=== PATIENT | female | born 1950 | race Caucasian/White ===

== ENCOUNTER 2022-08-17 01:06 | Inpatient (IN) ==
[2022-08-17] MEDS ORDERED: 0.9 % Sodium Chloride 1,000 ML IVC SCH (06:30)
[2022-08-17] MEDS ORDERED: Ondansetron 4 MG/2 ML VIAL IVP PRN (06:30)
[2022-08-17] MEDS ORDERED: Naloxone 0.4 MG/ML INJ IVP PRN (06:30)
[2022-08-17 07:43] LABS: Hematocrit 26.9 % (35.3-44.9); Hemoglobin 8.1 g/dL (11.5-15.4); Mean Corpuscular HGB Conc 30.1 g/dL (31.6-35.5); Mean Corpuscular Hemoglobin 32.7 pg (28.0-33.3); Mean Corpuscular Volume 108.5 fL (83.0-100.0); Platelet Count 104 K/mcL (140-400); Red Blood Count 2.48 M/mcL (3.82-4.97); Red Cell Distribution Width 15.4 % (11.5-14.5); White Blood Count 5.2 K/mcL (4.3-11.1)
[2022-08-17 07:47] LABS: INR 1.1; Prothrombin Time 12.8 Seconds (9.4-12.1)
[2022-08-17 07:50] LABS: Activated Partial Thrombo Time 29.9 Seconds (26.0-36.0)
[2022-08-17 07:55] LABS: Albumin 3.5 g/dL (3.5-5.7); Bilirubin,Total 0.9 mg/dL (0.3-1.0); Calcium 8.4 mg/dL (8.6-10.3); Globulin 3.5 g/dL (2.4-3.5); Potassium 4.4 mEq/L (3.5-5.1)
[2022-08-17] MEDS ORDERED: *HR* Dextrose 50 % in Water (Syg) 50 ML SYRINGE IVP PRN (08:37)
[2022-08-17] MEDS ORDERED: D5% in Water 1,000 ML IVC PRN (08:37)
[2022-08-17] MEDS ORDERED: Dextrose Gel 15 GM/37.5 ML TUBE PO PRN ×2 (08:37)
[2022-08-17] MEDS ORDERED: Albuterol 2.5 MG/3 ML NEBULIZER IH PRN (08:38)
[2022-08-17] MEDS: Lactulose Oral Soln 20 GM/30 ML UDC PO SCH ×2 (08:49→20:08)
[2022-08-17] MEDS: Aspirin Enteric Coated 81 MG Tablet PO SCH (08:49)
[2022-08-17] MEDS: Isosorbide MONOnitrate (24 HR) 60 MG TAB.ER.24H PO SCH (08:50)
[2022-08-17] MEDS: Magnesium Oxide 400 MG TABLET PO SCH ×2 (08:53→20:07)
[2022-08-17] MEDS: Multivit/Ca/Min/Fe/FA 1 TAB TABLET PO SCH (08:53)
[2022-08-17] MEDS: Budesonide/Formoterol 160/4.5 1 PUFF INH IH SCH ×2 (09:45→20:28)
[2022-08-17] MEDS: Tiotropium 10 INH DOSE IH SCH (09:46)
[2022-08-17] MEDS ORDERED: cefTRIAXone 2,000 MG in 0.9 % Sodium Chloride Mini Bag 100 ML IVPB SCH (11:02)
[2022-08-17] MEDS: Insulin LISPRO 300 UNITS/3 ML VIAL SUBQ SCH ×2 (12:10→16:46)
[2022-08-17 17:37] LABS: Bilirubin,Urine Negative (Negative); Blood,Urine Moderate (Negative); Clarity,Urine Clear (Clear); Color,Urine Yellow (Yellow); Glucose,Urine (UA) 500 mg/dL (Normal); Ketones,Urine Negative (Negative); Leukocyte Esterase,Urine Negative (Negative); Nitrite,Urine Negative (Negative); Protein,Urine Negative (Neg-Trace); Specific Gravity,Urine 1.015 (1.010-1.025); Urobilinogen,Urine Normal (Normal)
[2022-08-17 17:42] LABS: Bacteria,Urine Few per hpf (None-Few); RBC,Urine 0-3 per hpf (0-3); Squamous Epithelial Cell,Urine Few per hpf (None-Few); WBC,Urine 0-3 per hpf (0-3)
[2022-08-17] MEDS ORDERED: Insulin LISPRO 300 UNITS/3 ML VIAL SUBQ SCH (21:00)
[2022-08-18] MEDS: *HR* HYDROcodone/Acet 5/325 mg TABLET PO PRN ×4 (01:36→21:43)
[2022-08-18 07:56] LABS: Calcium 8.4 mg/dL (8.6-10.3); Potassium 4.3 mEq/L (3.5-5.1)
[2022-08-18 08:03] LABS: Hematocrit 25.8 % (35.3-44.9); Hemoglobin 7.9 g/dL (11.5-15.4); Mean Corpuscular HGB Conc 30.6 g/dL (31.6-35.5); Mean Corpuscular Hemoglobin 32.6 pg (28.0-33.3); Mean Corpuscular Volume 106.6 fL (83.0-100.0); Mean Platelet Volume 10.5 fL (9.4-12.4); Red Blood Count 2.42 M/mcL (3.82-4.97); Red Cell Distribution Width 15.2 % (11.5-14.5); White Blood Count 3.9 K/mcL (4.3-11.1)
[2022-08-18 08:13] LABS: Platelet Count 94 K/mcL (140-400)
[2022-08-18] MEDS: Tiotropium 10 INH DOSE IH SCH (08:17)
[2022-08-18] MEDS: Budesonide/Formoterol 160/4.5 1 PUFF INH IH SCH ×2 (08:17→21:40)
[2022-08-18] MEDS: Multivit/Ca/Min/Fe/FA 1 TAB TABLET PO SCH (09:04)
[2022-08-18] MEDS: Aspirin Enteric Coated 81 MG Tablet PO SCH (09:04)
[2022-08-18] MEDS: Magnesium Oxide 400 MG TABLET PO SCH ×2 (09:04→21:43)
[2022-08-18] MEDS: Lactulose Oral Soln 20 GM/30 ML UDC PO SCH ×2 (09:05→21:45)
[2022-08-18] MEDS: Insulin LISPRO 300 UNITS/3 ML VIAL SUBQ SCH ×4 (09:05→21:49)
[2022-08-18] MEDS: Isosorbide MONOnitrate (24 HR) 60 MG TAB.ER.24H PO SCH (09:05)
[2022-08-18] MEDS ORDERED: D5% in Water 1,000 ML IVC PRN (15:29)
[2022-08-18] MEDS ORDERED: *HR* Dextrose 50 % in Water (Syg) 50 ML SYRINGE IVP PRN (15:29)
[2022-08-18] MEDS ORDERED: Dextrose Gel 15 GM/37.5 ML TUBE PO PRN ×2 (15:29)
[2022-08-18] MEDS ORDERED: Insulin LISPRO 300 UNITS/3 ML VIAL SUBQ ONE (17:18)
[2022-08-18] MEDS: Furosemide 40 MG TABLET PO SCH (17:26)
[2022-08-18] MEDS ORDERED: Albumin 25% 25gram/100mL 25 GM/100 ML IV.SOLN IVPB ONE (20:20)
[2022-08-18] MEDS: *HR* LORazepam 1 MG TABLET PO PRN (21:43)
[2022-08-18] MEDS: *HR* Heparin 5,000 UNIT/ML VIAL SQ SCH (21:45)
[2022-08-18] MEDS: Insulin DETEMIR 100 UNIT/ML X5UNITS SUBQ SCH (21:48)
[2022-08-18] MEDS: Ondansetron ODT 4 MG TAB.RAPDIS PO PRN (22:30)
[2022-08-19] MEDS ORDERED: Albumin 25% 25gram/100mL 25 GM/100 ML IV.SOLN IVPB ONE (05:00)
[2022-08-19] MEDS: *HR* Heparin 5,000 UNIT/ML VIAL SQ SCH ×3 (05:01→22:15)
[2022-08-19 07:30] LABS: Basophils % 0.5 %; Eosinophils # 0.1 K/mcL (0.0-0.6); Eosinophils % 2.4 %; Hematocrit 25.1 % (35.3-44.9); Hemoglobin 7.7 g/dL (11.5-15.4); Immature Granulocytes % 0.3 % (0-4); Lymphocytes # 0.5 K/mcL (0.6-4.6); Lymphocytes % 12.3 %; Mean Corpuscular HGB Conc 30.7 g/dL (31.6-35.5); Mean Corpuscular Hemoglobin 32.8 pg (28.0-33.3); Mean Corpuscular Volume 106.8 fL (83.0-100.0); Mean Platelet Volume 10.6 fL (9.4-12.4); Monocytes # 0.3 K/mcL (0.0-1.3); Monocytes % 7.5 %; Neutrophils # 2.9 K/mcL (1.6-8.9); Red Blood Count 2.35 M/mcL (3.82-4.97); Red Cell Distribution Width 14.9 % (11.5-14.5); White Blood Count 3.8 K/mcL (4.3-11.1)
[2022-08-19 07:36] LABS: Platelet Count 94 K/mcL (140-400)
[2022-08-19 07:42] LABS: Calcium 8.8 mg/dL (8.6-10.3); Potassium 4.4 mEq/L (3.5-5.1)
[2022-08-19] MEDS: Budesonide/Formoterol 160/4.5 1 PUFF INH IH SCH ×2 (08:59→22:22)
[2022-08-19] MEDS: Tiotropium 10 INH DOSE IH SCH (08:59)
[2022-08-19] MEDS: Insulin LISPRO 300 UNITS/3 ML VIAL SUBQ SCH ×4 (10:23→21:11)
[2022-08-19] MEDS: Insulin DETEMIR 100 UNIT/ML X5UNITS SUBQ SCH (10:23)
[2022-08-19] MEDS: Isosorbide MONOnitrate (24 HR) 60 MG TAB.ER.24H PO SCH (10:24)
[2022-08-19] MEDS: Aspirin Enteric Coated 81 MG Tablet PO SCH (10:24)
[2022-08-19] MEDS: Lactulose Oral Soln 20 GM/30 ML UDC PO SCH ×2 (10:24→21:08)
[2022-08-19] MEDS: Furosemide 40 MG TABLET PO SCH ×2 (10:24→17:05)
[2022-08-19] MEDS: Multivit/Ca/Min/Fe/FA 1 TAB TABLET PO SCH (10:25)
[2022-08-19] MEDS: Magnesium Oxide 400 MG TABLET PO SCH ×2 (10:25→21:10)
[2022-08-19] MEDS: *HR* HYDROcodone/Acet 5/325 mg TABLET PO PRN ×2 (14:17→21:09)
[2022-08-19] MEDS ORDERED: Insulin DETEMIR 100 UNIT/ML per UNIT SUBQ ONE (21:00)
[2022-08-19] MEDS: *HR* LORazepam 1 MG TABLET PO PRN (21:10)
[2022-08-20] MEDS: *HR* HYDROcodone/Acet 5/325 mg TABLET PO PRN ×3 (03:30→20:41)
[2022-08-20] MEDS: *HR* Heparin 5,000 UNIT/ML VIAL SQ SCH ×3 (05:18→20:57)
[2022-08-20 06:27] LABS: Basophils % 0.3 %; Eosinophils # 0.1 K/mcL (0.0-0.6); Eosinophils % 2.1 %; Hematocrit 25.7 % (35.3-44.9); Hemoglobin 7.9 g/dL (11.5-15.4); Lymphocytes # 0.5 K/mcL (0.6-4.6); Mean Corpuscular HGB Conc 30.7 g/dL (31.6-35.5); Mean Corpuscular Hemoglobin 32.4 pg (28.0-33.3); Mean Corpuscular Volume 105.3 fL (83.0-100.0); Mean Platelet Volume 10.6 fL (9.4-12.4); Monocytes # 0.2 K/mcL (0.0-1.3); Monocytes % 6.9 %; Neutrophils # 2.5 K/mcL (1.6-8.9); Red Blood Count 2.44 M/mcL (3.82-4.97); Red Cell Distribution Width 14.7 % (11.5-14.5); Segmented Neutrophils % 75.7 %; White Blood Count 3.3 K/mcL (4.3-11.1)
[2022-08-20 06:32] LABS: Platelet Count 83 K/mcL (140-400)
[2022-08-20 06:49] LABS: Calcium 8.9 mg/dL (8.6-10.3); Magnesium 1.9 mg/dL (1.6-2.6); Potassium 4.5 mEq/L (3.5-5.1)
[2022-08-20] MEDS ORDERED: Insulin DETEMIR 100 UNIT/ML X5UNITS SUBQ SCH (09:00)
[2022-08-20] MEDS: Budesonide/Formoterol 160/4.5 1 PUFF INH IH SCH ×2 (09:11→21:11)
[2022-08-20] MEDS: Tiotropium 10 INH DOSE IH SCH (09:12)
[2022-08-20] MEDS: Insulin LISPRO 300 UNITS/3 ML VIAL SUBQ SCH ×4 (10:33→20:55)
[2022-08-20] MEDS: Lactulose Oral Soln 20 GM/30 ML UDC PO SCH ×2 (10:33→20:41)
[2022-08-20] MEDS: Magnesium Oxide 400 MG TABLET PO SCH ×2 (10:34→20:42)
[2022-08-20] MEDS: Furosemide 40 MG TABLET PO SCH ×2 (10:34→17:20)
[2022-08-20] MEDS: Aspirin Enteric Coated 81 MG Tablet PO SCH (10:34)
[2022-08-20] MEDS: Isosorbide MONOnitrate (24 HR) 60 MG TAB.ER.24H PO SCH (10:34)
[2022-08-20] MEDS: Multivit/Ca/Min/Fe/FA 1 TAB TABLET PO SCH (10:35)
[2022-08-20] MEDS ORDERED: *HR* Dextrose 50 % in Water (Syg) 50 ML SYRINGE IVP PRN (18:47)
[2022-08-20] MEDS ORDERED: D5% in Water 1,000 ML IVC PRN (18:47)
[2022-08-20] MEDS ORDERED: Dextrose Gel 15 GM/37.5 ML TUBE PO PRN ×2 (18:47)
[2022-08-20] MEDS ORDERED: Insulin DETEMIR 100 UNIT/ML per UNIT SUBQ ONE (21:00)
[2022-08-20] MEDS: *HR* LORazepam 1 MG TABLET PO PRN (21:37)
[2022-08-21] MEDS: *HR* HYDROcodone/Acet 5/325 mg TABLET PO PRN ×3 (03:04→22:48)
[2022-08-21] MEDS: *HR* Heparin 5,000 UNIT/ML VIAL SQ SCH ×3 (05:13→22:48)
[2022-08-21 07:57] LABS: Basophils % 0.5 %; Eosinophils # 0.1 K/mcL (0.0-0.6); Eosinophils % 1.8 %; Hematocrit 26.9 % (35.3-44.9); Hemoglobin 8.5 g/dL (11.5-15.4); Immature Granulocytes % 0.3 % (0-4); Lymphocytes # 0.5 K/mcL (0.6-4.6); Lymphocytes % 11.5 %; Mean Corpuscular HGB Conc 31.6 g/dL (31.6-35.5); Mean Corpuscular Hemoglobin 33.2 pg (28.0-33.3); Mean Corpuscular Volume 105.1 fL (83.0-100.0); Mean Platelet Volume 10.8 fL (9.4-12.4); Monocytes # 0.3 K/mcL (0.0-1.3); Monocytes % 7.4 %; Neutrophils # 3.1 K/mcL (1.6-8.9); Red Blood Count 2.56 M/mcL (3.82-4.97); Segmented Neutrophils % 78.5 %; White Blood Count 3.9 K/mcL (4.3-11.1)
[2022-08-21 08:01] LABS: Platelet Count 84 K/mcL (140-400)
[2022-08-21] MEDS: Magnesium Oxide 400 MG TABLET PO SCH ×2 (08:04→22:48)
[2022-08-21] MEDS: Aspirin Enteric Coated 81 MG Tablet PO SCH (08:04)
[2022-08-21] MEDS: Lactulose Oral Soln 20 GM/30 ML UDC PO SCH ×4 (08:04→22:48)
[2022-08-21] MEDS: Insulin LISPRO 300 UNITS/3 ML VIAL SUBQ SCH ×4 (08:04→22:52)
[2022-08-21] MEDS: Furosemide 40 MG TABLET PO SCH (08:04)
[2022-08-21] MEDS: Isosorbide MONOnitrate (24 HR) 60 MG TAB.ER.24H PO SCH (08:05)
[2022-08-21] MEDS: Multivit/Ca/Min/Fe/FA 1 TAB TABLET PO SCH (08:05)
[2022-08-21 08:15] LABS: Calcium 9.3 mg/dL (8.6-10.3); Magnesium 1.8 mg/dL (1.6-2.6); Potassium 4.8 mEq/L (3.5-5.1)
[2022-08-21] MEDS: Insulin DETEMIR 100 UNIT/ML X5UNITS SUBQ SCH ×2 (08:51→22:51)
[2022-08-21] MEDS: Budesonide/Formoterol 160/4.5 1 PUFF INH IH SCH ×2 (08:58→21:00)
[2022-08-21] MEDS: Tiotropium 10 INH DOSE IH SCH (08:58)
[2022-08-21] MEDS: Ondansetron ODT 4 MG TAB.RAPDIS PO PRN (11:28)
[2022-08-21] MEDS: *HR* LORazepam 1 MG TABLET PO PRN (22:48)
[2022-08-21] MEDS: Furosemide 40 MG/4 ML VIAL IVP SCH (22:52)
[2022-08-22] MEDS: *HR* HYDROcodone/Acet 5/325 mg TABLET PO PRN ×3 (05:10→21:37)
[2022-08-22] MEDS: *HR* Heparin 5,000 UNIT/ML VIAL SQ SCH ×3 (07:03→21:45)
[2022-08-22] MEDS: Budesonide/Formoterol 160/4.5 1 PUFF INH IH SCH ×2 (07:53→21:18)
[2022-08-22] MEDS: Tiotropium 10 INH DOSE IH SCH (07:54)
[2022-08-22 08:21] LABS: Hematocrit 26.8 % (35.3-44.9); Hemoglobin 8.4 g/dL (11.5-15.4); Mean Corpuscular HGB Conc 31.3 g/dL (31.6-35.5); Mean Corpuscular Hemoglobin 32.9 pg (28.0-33.3); Mean Corpuscular Volume 105.1 fL (83.0-100.0); Mean Platelet Volume 10.8 fL (9.4-12.4); Red Blood Count 2.55 M/mcL (3.82-4.97); Red Cell Distribution Width 14.9 % (11.5-14.5); White Blood Count 4.1 K/mcL (4.3-11.1)
[2022-08-22 08:35] LABS: Platelet Count 86 K/mcL (140-400)
[2022-08-22 08:38] LABS: Albumin 3.7 g/dL (3.5-5.7); Bilirubin,Total 0.8 mg/dL (0.3-1.0); Calcium 9.3 mg/dL (8.6-10.3); Chol/HDL Ratio 3.4 (0-4.9); Globulin 3.7 g/dL (2.4-3.5); Magnesium 1.9 mg/dL (1.6-2.6); Potassium 4.7 mEq/L (3.5-5.1); Total Protein 7.4 g/dL (6.4-8.9)
[2022-08-22] MEDS: Insulin LISPRO 300 UNITS/3 ML VIAL SUBQ SCH ×4 (09:09→21:44)
[2022-08-22] MEDS: Lactulose Oral Soln 20 GM/30 ML UDC PO SCH ×4 (09:09→21:42)
[2022-08-22] MEDS: Insulin DETEMIR 100 UNIT/ML X5UNITS SUBQ SCH ×2 (09:09→21:38)
[2022-08-22] MEDS: Aspirin Enteric Coated 81 MG Tablet PO SCH (09:10)
[2022-08-22] MEDS: Magnesium Oxide 400 MG TABLET PO SCH ×2 (09:10→21:37)
[2022-08-22] MEDS: Isosorbide MONOnitrate (24 HR) 60 MG TAB.ER.24H PO SCH (09:10)
[2022-08-22] MEDS: Multivit/Ca/Min/Fe/FA 1 TAB TABLET PO SCH (09:10)
[2022-08-22] MEDS: Furosemide 40 MG/4 ML VIAL IVP SCH ×2 (09:10→21:42)
[2022-08-22 13:14] LABS: Estimated Average Glucose 151 mg/dl; Hemoglobin A1C 6.9 %
[2022-08-23] MEDS: *HR* Heparin 5,000 UNIT/ML VIAL SQ SCH ×3 (05:48→22:33)
[2022-08-23] MEDS: Tiotropium 10 INH DOSE IH SCH (07:41)
[2022-08-23] MEDS: Budesonide/Formoterol 160/4.5 1 PUFF INH IH SCH ×2 (07:41→21:28)
[2022-08-23 07:44] LABS: Hematocrit 26.4 % (35.3-44.9); Hemoglobin 8.2 g/dL (11.5-15.4); Mean Corpuscular HGB Conc 31.1 g/dL (31.6-35.5); Mean Corpuscular Hemoglobin 32.7 pg (28.0-33.3); Mean Corpuscular Volume 105.2 fL (83.0-100.0); Mean Platelet Volume 10.9 fL (9.4-12.4); Red Blood Count 2.51 M/mcL (3.82-4.97); Red Cell Distribution Width 14.9 % (11.5-14.5); White Blood Count 3.9 K/mcL (4.3-11.1)
[2022-08-23 07:49] LABS: Platelet Count 86 K/mcL (140-400)
[2022-08-23 08:02] LABS: Calcium 9.1 mg/dL (8.6-10.3); Magnesium 1.9 mg/dL (1.6-2.6); Potassium 4.7 mEq/L (3.5-5.1)
[2022-08-23] MEDS: Lactulose Oral Soln 20 GM/30 ML UDC PO SCH ×4 (09:03→20:41)
[2022-08-23] MEDS: Magnesium Oxide 400 MG TABLET PO SCH ×2 (09:04→20:41)
[2022-08-23] MEDS: Isosorbide MONOnitrate (24 HR) 60 MG TAB.ER.24H PO SCH (09:04)
[2022-08-23] MEDS: Multivit/Ca/Min/Fe/FA 1 TAB TABLET PO SCH (09:04)
[2022-08-23] MEDS: Furosemide 40 MG/4 ML VIAL IVP SCH (09:04)
[2022-08-23] MEDS: Aspirin Enteric Coated 81 MG Tablet PO SCH (09:05)
[2022-08-23] MEDS: Insulin DETEMIR 100 UNIT/ML X5UNITS SUBQ SCH ×2 (09:05→20:43)
[2022-08-23] MEDS: Insulin LISPRO 300 UNITS/3 ML VIAL SUBQ SCH ×4 (09:05→20:42)
[2022-08-23] MEDS: *HR* HYDROcodone/Acet 5/325 mg TABLET PO PRN ×3 (09:17→22:38)
[2022-08-24] MEDS: *HR* LORazepam 1 MG TABLET PO PRN (01:08)
[2022-08-24] MEDS: *HR* Heparin 5,000 UNIT/ML VIAL SQ SCH ×2 (06:31→12:54)
[2022-08-24 07:36] LABS: Basophils % 0.3 %; Eosinophils # 0.1 K/mcL (0.0-0.6); Hematocrit 26.3 % (35.3-44.9); Hemoglobin 8.2 g/dL (11.5-15.4); Immature Granulocytes % 0.5 % (0-4); Lymphocytes # 0.5 K/mcL (0.6-4.6); Lymphocytes % 14.5 %; Mean Corpuscular HGB Conc 31.2 g/dL (31.6-35.5); Mean Corpuscular Hemoglobin 32.8 pg (28.0-33.3); Mean Corpuscular Volume 105.2 fL (83.0-100.0); Mean Platelet Volume 11.1 fL (9.4-12.4); Monocytes # 0.3 K/mcL (0.0-1.3); Monocytes % 7.9 %; Neutrophils # 2.7 K/mcL (1.6-8.9); Red Cell Distribution Width 14.7 % (11.5-14.5); Segmented Neutrophils % 73.8 %; White Blood Count 3.7 K/mcL (4.3-11.1)
[2022-08-24 07:39] LABS: Platelet Count 79 K/mcL (140-400)
[2022-08-24 07:41] VITALS: BP 119/67; PULSE 105; RESP 18; TEMP 98.1
[2022-08-24 07:51] LABS: INR 1.2; Prothrombin Time 13.2 Seconds (9.4-12.1)
[2022-08-24 07:58] LABS: Albumin 3.7 g/dL (3.5-5.7); Albumin/Globulin Ratio 1.1 (1.1-2.2); Bilirubin,Total 0.8 mg/dL (0.3-1.0); Calcium 9.2 mg/dL (8.6-10.3); Globulin 3.5 g/dL (2.4-3.5); Potassium 5.4 mEq/L (3.5-5.1); Total Protein 7.2 g/dL (6.4-8.9)
[2022-08-24] MEDS: Tiotropium 10 INH DOSE IH SCH (08:34)
[2022-08-24] MEDS: Budesonide/Formoterol 160/4.5 1 PUFF INH IH SCH (08:34)
[2022-08-24] MEDS: Lactulose Oral Soln 20 GM/30 ML UDC PO SCH ×2 (08:36→12:55)
[2022-08-24] MEDS: Insulin LISPRO 300 UNITS/3 ML VIAL SUBQ SCH ×2 (08:37→12:54)
[2022-08-24 08:38] VITALS: O2SAT 97
[2022-08-24] MEDS: Aspirin Enteric Coated 81 MG Tablet PO SCH (08:39)
[2022-08-24] MEDS: Magnesium Oxide 400 MG TABLET PO SCH (08:39)
[2022-08-24] MEDS: Multivit/Ca/Min/Fe/FA 1 TAB TABLET PO SCH (08:39)
[2022-08-24] MEDS: Isosorbide MONOnitrate (24 HR) 60 MG TAB.ER.24H PO SCH (08:41)
[2022-08-24] MEDS: *HR* HYDROcodone/Acet 5/325 mg TABLET PO PRN ×2 (08:51→14:41)
[2022-08-24] MEDS: Insulin DETEMIR 100 UNIT/ML X5UNITS SUBQ SCH (08:52)
[2022-08-24] MEDS ORDERED: Furosemide 40 MG/4 ML VIAL IVP SCH (09:00)
== END 2022-08-24 14:59 | disposition other institution (70) | DRG 441 ==
LOC: CANPREIN → INPPIK
PROVIDERS: ADMIT Internal Medicine; ATTEND Internal Medicine

== ENCOUNTER 2022-08-24 14:49 | Inpatient (IN) ==
[2022-08-24] MEDS ORDERED: Ondansetron ODT 4 MG TAB.RAPDIS PO PRN (15:48)
[2022-08-24] MEDS ORDERED: Albuterol 2.5 MG/3 ML NEBULIZER IH PRN (15:48)
[2022-08-24] MEDS ORDERED: *HR* LORazepam 1 MG TABLET PO PRN (15:48)
[2022-08-24] MEDS ORDERED: D5% in Water 1,000 ML IVC PRN (16:18)
[2022-08-24] MEDS ORDERED: Dextrose Gel 15 GM/37.5 ML TUBE PO PRN ×2 (16:18)
[2022-08-24] MEDS ORDERED: *HR* Dextrose 50 % in Water (Syg) 50 ML SYRINGE IVP PRN (16:18)
[2022-08-24] MEDS: Insulin LISPRO 300 UNITS/3 ML VIAL SUBQ SCH ×2 (17:56→20:42)
[2022-08-24] MEDS: Gabapentin 100 MG CAPSULE PO SCH ×2 (17:58→20:41)
[2022-08-24] MEDS: Lactulose Oral Soln 20 GM/30 ML UDC PO SCH ×2 (17:58→20:40)
[2022-08-24] MEDS: allopurinoL 100 MG TABLET PO SCH (20:40)
[2022-08-24] MEDS: Magnesium Oxide 400 MG TABLET PO SCH (20:40)
[2022-08-24] MEDS: Furosemide 20 MG/2 ML VIAL IVP SCH (20:42)
[2022-08-24] MEDS ORDERED: Furosemide 40 MG TABLET PO SCH (21:00)
[2022-08-24] MEDS: Budesonide/Formoterol 160/4.5 1 PUFF INH IH SCH (21:22)
[2022-08-24] MEDS ORDERED: Insulin DETEMIR 100 UNIT/ML per UNIT SUBQ ONE (22:15)
[2022-08-24] MEDS: *HR* Heparin 5,000 UNIT/ML VIAL SQ SCH (22:25)
[2022-08-25] MEDS: *HR* Heparin 5,000 UNIT/ML VIAL SQ SCH ×3 (05:35→21:55)
[2022-08-25] MEDS: Budesonide/Formoterol 160/4.5 1 PUFF INH IH SCH ×2 (07:54→20:23)
[2022-08-25] MEDS: Tiotropium 10 INH DOSE IH SCH (07:55)
[2022-08-25] MEDS: Multivit/Ca/Min/Fe/FA 1 TAB TABLET PO SCH (08:34)
[2022-08-25] MEDS: Lactulose Oral Soln 20 GM/30 ML UDC PO SCH ×3 (08:34→21:50)
[2022-08-25] MEDS: Isosorbide MONOnitrate (24 HR) 60 MG TAB.ER.24H PO SCH (08:34)
[2022-08-25] MEDS: Gabapentin 100 MG CAPSULE PO SCH ×4 (08:34→21:48)
[2022-08-25] MEDS: Aspirin Enteric Coated 81 MG Tablet PO SCH (08:34)
[2022-08-25] MEDS: allopurinoL 100 MG TABLET PO SCH ×2 (08:34→21:48)
[2022-08-25] MEDS: Magnesium Oxide 400 MG TABLET PO SCH ×2 (08:34→21:48)
[2022-08-25] MEDS: Furosemide 20 MG/2 ML VIAL IVP SCH (08:35)
[2022-08-25] MEDS: Insulin LISPRO 300 UNITS/3 ML VIAL SUBQ SCH ×4 (08:37→21:52)
[2022-08-25 09:04] LABS: Basophils % 0.4 %; Eosinophils # 0.1 K/mcL (0.0-0.6); Eosinophils % 2.8 %; Hematocrit 26.5 % (35.3-44.9); Hemoglobin 8.2 g/dL (11.5-15.4); Immature Granulocytes % 0.7 % (0-4); Lymphocytes # 0.4 K/mcL (0.6-4.6); Lymphocytes % 14.4 %; Mean Corpuscular HGB Conc 30.9 g/dL (31.6-35.5); Mean Corpuscular Hemoglobin 32.9 pg (28.0-33.3); Mean Corpuscular Volume 106.4 fL (83.0-100.0); Mean Platelet Volume 11.6 fL (9.4-12.4); Monocytes # 0.2 K/mcL (0.0-1.3); Monocytes % 7.7 %; Red Blood Count 2.49 M/mcL (3.82-4.97); Red Cell Distribution Width 14.6 % (11.5-14.5); White Blood Count 2.9 K/mcL (4.3-11.1)
[2022-08-25 09:08] LABS: Neutrophils # 2.2 K/mcL (1.6-8.9); Platelet Count 79 K/mcL (140-400)
[2022-08-25 09:10] LABS: Potassium 4.8 mEq/L (3.5-5.1)
[2022-08-25] MEDS: *HR* HYDROcodone/Acet 5/325 mg TABLET PO PRN ×2 (14:17→21:48)
[2022-08-25] MEDS ORDERED: Insulin DETEMIR 100 UNIT/ML X5UNITS SUBQ SCH (21:00)
[2022-08-25] MEDS: Insulin DETEMIR 100 UNIT/ML X5UNITS SUBQ SCH (21:54)
[2022-08-26] MEDS: *HR* Heparin 5,000 UNIT/ML VIAL SQ SCH ×3 (06:34→20:28)
[2022-08-26 08:06] LABS: Basophils % 0.4 %; Eosinophils # 0.1 K/mcL (0.0-0.6); Eosinophils % 3.6 %; Hematocrit 25.6 % (35.3-44.9); Hemoglobin 7.9 g/dL (11.5-15.4); Immature Granulocytes % 0.4 % (0-4); Lymphocytes # 0.5 K/mcL (0.6-4.6); Lymphocytes % 17.1 %; Mean Corpuscular HGB Conc 30.9 g/dL (31.6-35.5); Mean Corpuscular Hemoglobin 32.4 pg (28.0-33.3); Mean Corpuscular Volume 104.9 fL (83.0-100.0); Mean Platelet Volume 10.9 fL (9.4-12.4); Monocytes # 0.2 K/mcL (0.0-1.3); Monocytes % 8.2 %; Red Blood Count 2.44 M/mcL (3.82-4.97); Red Cell Distribution Width 14.5 % (11.5-14.5); Segmented Neutrophils % 70.3 %; White Blood Count 2.8 K/mcL (4.3-11.1)
[2022-08-26 08:11] LABS: INR 1.2
[2022-08-26 08:18] LABS: Platelet Count 70 K/mcL (140-400)
[2022-08-26 08:23] LABS: Albumin 3.7 g/dL (3.5-5.7); Albumin/Globulin Ratio 1.1 (1.1-2.2); Bilirubin,Direct 0.2 mg/dL (0.0-0.2); Bilirubin,Indirect 0.6 mg/dL (0.0-1.0); Bilirubin,Total 0.8 mg/dL (0.3-1.0); Calcium 8.7 mg/dL (8.6-10.3); Globulin 3.5 g/dL (2.4-3.5); Potassium 4.8 mEq/L (3.5-5.1); Total Protein 7.2 g/dL (6.4-8.9)
[2022-08-26] MEDS: Multivit/Ca/Min/Fe/FA 1 TAB TABLET PO SCH (08:23)
[2022-08-26] MEDS: Isosorbide MONOnitrate (24 HR) 60 MG TAB.ER.24H PO SCH (08:23)
[2022-08-26] MEDS: Aspirin Enteric Coated 81 MG Tablet PO SCH (08:23)
[2022-08-26] MEDS: allopurinoL 100 MG TABLET PO SCH ×2 (08:23→20:27)
[2022-08-26] MEDS: Magnesium Oxide 400 MG TABLET PO SCH ×2 (08:23→20:27)
[2022-08-26] MEDS: Gabapentin 100 MG CAPSULE PO SCH ×4 (08:23→20:27)
[2022-08-26] MEDS: Lactulose Oral Soln 20 GM/30 ML UDC PO SCH ×4 (08:23→20:27)
[2022-08-26] MEDS: Insulin LISPRO 300 UNITS/3 ML VIAL SUBQ SCH ×4 (08:24→20:28)
[2022-08-26] MEDS: Budesonide/Formoterol 160/4.5 1 PUFF INH IH SCH ×2 (09:09→21:40)
[2022-08-26] MEDS: Tiotropium 10 INH DOSE IH SCH (09:11)
[2022-08-26] MEDS: Insulin DETEMIR 100 UNIT/ML X5UNITS SUBQ SCH ×2 (09:30→20:27)
[2022-08-26] MEDS: *HR* HYDROcodone/Acet 5/325 mg TABLET PO PRN ×2 (12:08→20:28)
[2022-08-26] MEDS: Furosemide 20 MG/2 ML VIAL IVP SCH (20:28)
[2022-08-26] MEDS ORDERED: Insulin Human Regular 10 UNIT in 0.9 % Sodium Chloride 10 ML IV ONE (23:40)
[2022-08-27 05:03] LABS: Basophils % 0.3 %; Eosinophils # 0.1 K/mcL (0.0-0.6); Eosinophils % 2.4 %; Hematocrit 25.2 % (35.3-44.9); Hemoglobin 7.8 g/dL (11.5-15.4); Immature Granulocytes % 0.3 % (0-4); Lymphocytes # 0.5 K/mcL (0.6-4.6); Lymphocytes % 16.4 %; Mean Corpuscular Hemoglobin 32.2 pg (28.0-33.3); Mean Corpuscular Volume 104.1 fL (83.0-100.0); Mean Platelet Volume 11.2 fL (9.4-12.4); Monocytes # 0.2 K/mcL (0.0-1.3); Monocytes % 8.4 %; Neutrophils # 2.1 K/mcL (1.6-8.9); Red Blood Count 2.42 M/mcL (3.82-4.97); Red Cell Distribution Width 14.4 % (11.5-14.5); Segmented Neutrophils % 72.2 %; White Blood Count 2.9 K/mcL (4.3-11.1)
[2022-08-27 05:24] LABS: Albumin 3.6 g/dL (3.5-5.7); Albumin/Globulin Ratio 1.1 (1.1-2.2); Bilirubin,Total 0.8 mg/dL (0.3-1.0); Calcium 8.8 mg/dL (8.6-10.3); Globulin 3.4 g/dL (2.4-3.5); Potassium 4.9 mEq/L (3.5-5.1)
[2022-08-27] MEDS: *HR* Heparin 5,000 UNIT/ML VIAL SQ SCH ×3 (06:07→20:32)
[2022-08-27 06:08] LABS: Platelet Count 78 K/mcL (140-400)
[2022-08-27] MEDS: Lactulose Oral Soln 20 GM/30 ML UDC PO SCH ×4 (08:39→20:29)
[2022-08-27] MEDS: Aspirin Enteric Coated 81 MG Tablet PO SCH (08:39)
[2022-08-27] MEDS: Isosorbide MONOnitrate (24 HR) 60 MG TAB.ER.24H PO SCH (08:39)
[2022-08-27] MEDS: Multivit/Ca/Min/Fe/FA 1 TAB TABLET PO SCH (08:39)
[2022-08-27] MEDS: Gabapentin 100 MG CAPSULE PO SCH ×4 (08:40→20:29)
[2022-08-27] MEDS: Magnesium Oxide 400 MG TABLET PO SCH ×2 (08:40→20:27)
[2022-08-27] MEDS: allopurinoL 100 MG TABLET PO SCH ×2 (08:40→20:29)
[2022-08-27] MEDS: Insulin LISPRO 300 UNITS/3 ML VIAL SUBQ SCH ×7 (08:40→20:30)
[2022-08-27] MEDS: Furosemide 20 MG/2 ML VIAL IVP SCH (08:44)
[2022-08-27] MEDS: Budesonide/Formoterol 160/4.5 1 PUFF INH IH SCH ×2 (08:50→21:12)
[2022-08-27] MEDS: Tiotropium 10 INH DOSE IH SCH (08:51)
[2022-08-27] MEDS: *HR* HYDROcodone/Acet 5/325 mg TABLET PO PRN ×2 (09:09→20:28)
[2022-08-27] MEDS: Insulin DETEMIR 100 UNIT/ML X5UNITS SUBQ SCH ×2 (09:10→20:30)
[2022-08-27] MEDS ORDERED: 0.9 % Sodium Chloride 250 ML ONE (23:40)
[2022-08-28 05:45] LABS: Basophils % 0.3 %; Eosinophils # 0.1 K/mcL (0.0-0.6); Eosinophils % 2.6 %; Hematocrit 28.3 % (35.3-44.9); Hemoglobin 8.7 g/dL (11.5-15.4); Immature Granulocytes % 0.3 % (0-4); Lymphocytes % 14.8 %; Mean Corpuscular HGB Conc 30.7 g/dL (31.6-35.5); Mean Corpuscular Hemoglobin 31.8 pg (28.0-33.3); Mean Corpuscular Volume 103.3 fL (83.0-100.0); Mean Platelet Volume 10.9 fL (9.4-12.4); Monocytes # 0.2 K/mcL (0.0-1.3); Monocytes % 7.2 %; Red Blood Count 2.74 M/mcL (3.82-4.97); Red Cell Distribution Width 15.3 % (11.5-14.5); Segmented Neutrophils % 74.8 %
[2022-08-28 05:59] LABS: Lymphocytes # 0.4 K/mcL (0.6-4.6); Neutrophils # 2.2 K/mcL (1.6-8.9); Platelet Count 71 K/mcL (140-400)
[2022-08-28 06:01] LABS: Calcium 8.7 mg/dL (8.6-10.3); Potassium 4.7 mEq/L (3.5-5.1)
[2022-08-28] MEDS: *HR* Heparin 5,000 UNIT/ML VIAL SQ SCH ×3 (06:29→20:54)
[2022-08-28] MEDS: Isosorbide MONOnitrate (24 HR) 60 MG TAB.ER.24H PO SCH (08:33)
[2022-08-28] MEDS: Multivit/Ca/Min/Fe/FA 1 TAB TABLET PO SCH (08:33)
[2022-08-28] MEDS: allopurinoL 100 MG TABLET PO SCH ×2 (08:33→20:53)
[2022-08-28] MEDS: Aspirin Enteric Coated 81 MG Tablet PO SCH (08:34)
[2022-08-28] MEDS: Magnesium Oxide 400 MG TABLET PO SCH ×2 (08:34→20:53)
[2022-08-28] MEDS: Gabapentin 100 MG CAPSULE PO SCH ×4 (08:34→20:54)
[2022-08-28] MEDS: Lactulose Oral Soln 20 GM/30 ML UDC PO SCH ×4 (08:34→20:55)
[2022-08-28] MEDS: *HR* HYDROcodone/Acet 5/325 mg TABLET PO PRN ×2 (08:35→20:53)
[2022-08-28] MEDS: Insulin LISPRO 300 UNITS/3 ML VIAL SUBQ SCH ×7 (08:36→20:54)
[2022-08-28] MEDS ORDERED: Furosemide 20 MG/2 ML VIAL IVP SCH (09:00)
[2022-08-28] MEDS: Tiotropium 10 INH DOSE IH SCH (09:05)
[2022-08-28] MEDS: Budesonide/Formoterol 160/4.5 1 PUFF INH IH SCH ×2 (09:06→20:31)
[2022-08-28] MEDS: Insulin DETEMIR 100 UNIT/ML X5UNITS SUBQ SCH ×2 (10:52→20:54)
[2022-08-28] MEDS ORDERED: Insulin LISPRO 300 UNITS/3 ML VIAL SUBQ STA (13:34)
[2022-08-28] MEDS: Furosemide 20 MG TABLET PO SCH (16:40)
[2022-08-28] MEDS ORDERED: Insulin DETEMIR 100 UNIT/ML X5UNITS SUBQ SCH (21:00)
[2022-08-29] MEDS: *HR* HYDROcodone/Acet 5/325 mg TABLET PO PRN ×3 (05:08→21:19)
[2022-08-29] MEDS: *HR* Heparin 5,000 UNIT/ML VIAL SQ SCH ×3 (05:08→21:20)
[2022-08-29 06:31] LABS: Basophils % 0.5 %; Eosinophils # 0.1 K/mcL (0.0-0.6); Eosinophils % 4.4 %; Hemoglobin 7.3 g/dL (11.5-15.4); Immature Granulocytes % 1.1 % (0-4); Lymphocytes # 0.3 K/mcL (0.6-4.6); Lymphocytes % 17.5 %; Mean Corpuscular HGB Conc 31.7 g/dL (31.6-35.5); Mean Corpuscular Volume 100.9 fL (83.0-100.0); Mean Platelet Volume 11.1 fL (9.4-12.4); Monocytes # 0.2 K/mcL (0.0-1.3); Monocytes % 8.2 %; Red Blood Count 2.28 M/mcL (3.82-4.97); Segmented Neutrophils % 68.3 %; White Blood Count 1.8 K/mcL (4.3-11.1)
[2022-08-29 06:49] LABS: Neutrophils # 1.2 K/mcL (1.6-8.9)
[2022-08-29 06:50] LABS: Platelet Count 115 K/mcL (140-400)
[2022-08-29 06:51] LABS: INR 1.1; Prothrombin Time 12.8 Seconds (9.4-12.1)
[2022-08-29 07:00] LABS: Albumin 3.6 g/dL (3.5-5.7); Albumin/Globulin Ratio 1.1 (1.1-2.2); Calcium 8.9 mg/dL (8.6-10.3); Globulin 3.4 g/dL (2.4-3.5); Potassium 4.7 mEq/L (3.5-5.1)
[2022-08-29 07:21] LABS: Platelet Estimate Decreased (Normal)
[2022-08-29] MEDS ORDERED: Insulin LISPRO 300 UNITS/3 ML VIAL SUBQ SCH (08:00)
[2022-08-29] MEDS: allopurinoL 100 MG TABLET PO SCH ×2 (08:40→21:19)
[2022-08-29] MEDS: Lactulose Oral Soln 20 GM/30 ML UDC PO SCH ×4 (08:40→21:21)
[2022-08-29] MEDS: Aspirin Enteric Coated 81 MG Tablet PO SCH (08:40)
[2022-08-29] MEDS: Gabapentin 100 MG CAPSULE PO SCH ×4 (08:40→21:20)
[2022-08-29] MEDS: Isosorbide MONOnitrate (24 HR) 60 MG TAB.ER.24H PO SCH (08:40)
[2022-08-29] MEDS: Multivit/Ca/Min/Fe/FA 1 TAB TABLET PO SCH (08:40)
[2022-08-29] MEDS: Furosemide 20 MG TABLET PO SCH ×2 (08:40→16:33)
[2022-08-29] MEDS: Magnesium Oxide 400 MG TABLET PO SCH ×2 (08:40→21:19)
[2022-08-29] MEDS: Insulin DETEMIR 100 UNIT/ML X5UNITS SUBQ SCH ×2 (08:41→21:20)
[2022-08-29] MEDS: Insulin LISPRO 300 UNITS/3 ML VIAL SUBQ SCH ×6 (08:42→21:20)
[2022-08-29] MEDS: Tiotropium 10 INH DOSE IH SCH (08:58)
[2022-08-29] MEDS: Budesonide/Formoterol 160/4.5 1 PUFF INH IH SCH ×2 (08:59→20:29)
[2022-08-29] MEDS ORDERED: Furosemide 20 MG TABLET PO SCH (09:00)
[2022-08-29 10:55] LABS: Basophils % 0.3 %; Eosinophils # 0.1 K/mcL (0.0-0.6); Eosinophils % 2.9 %; Hematocrit 26.6 % (35.3-44.9); Hemoglobin 8.4 g/dL (11.5-15.4); Immature Granulocytes % 0.6 % (0-4); Lymphocytes # 0.5 K/mcL (0.6-4.6); Lymphocytes % 14.4 %; Mean Corpuscular HGB Conc 31.6 g/dL (31.6-35.5); Mean Corpuscular Hemoglobin 32.3 pg (28.0-33.3); Mean Corpuscular Volume 102.3 fL (83.0-100.0); Mean Platelet Volume 10.9 fL (9.4-12.4); Monocytes # 0.3 K/mcL (0.0-1.3); Neutrophils # 2.3 K/mcL (1.6-8.9); Red Cell Distribution Width 14.9 % (11.5-14.5); Segmented Neutrophils % 73.8 %; White Blood Count 3.1 K/mcL (4.3-11.1)
[2022-08-29 10:57] LABS: Platelet Count 78 K/mcL (140-400)
[2022-08-29 12:26] LABS: Estimated Average Glucose 163 mg/dl; Hemoglobin A1C 7.3 %
[2022-08-29 19:19] VITALS: TEMP 98.4
[2022-08-30] MEDS: *HR* Heparin 5,000 UNIT/ML VIAL SQ SCH (07:10)
[2022-08-30 07:14] LABS: Basophils % 0.3 %; Eosinophils # 0.1 K/mcL (0.0-0.6); Eosinophils % 3.7 %; Hematocrit 27.7 % (35.3-44.9); Hemoglobin 8.7 g/dL (11.5-15.4); Immature Granulocytes % 0.3 % (0-4); Lymphocytes # 0.6 K/mcL (0.6-4.6); Mean Corpuscular HGB Conc 31.4 g/dL (31.6-35.5); Mean Corpuscular Hemoglobin 32.6 pg (28.0-33.3); Mean Corpuscular Volume 103.7 fL (83.0-100.0); Monocytes # 0.3 K/mcL (0.0-1.3); Monocytes % 7.2 %; Neutrophils # 2.5 K/mcL (1.6-8.9); Red Blood Count 2.67 M/mcL (3.82-4.97); Red Cell Distribution Width 14.7 % (11.5-14.5); Segmented Neutrophils % 71.5 %; White Blood Count 3.5 K/mcL (4.3-11.1)
[2022-08-30 07:31] LABS: Platelet Count 83 K/mcL (140-400)
[2022-08-30 07:36] LABS: Albumin 3.7 g/dL (3.5-5.7); Albumin/Globulin Ratio 1.1 (1.1-2.2); Bilirubin,Total 0.8 mg/dL (0.3-1.0); Globulin 3.5 g/dL (2.4-3.5); Potassium 4.7 mEq/L (3.5-5.1); Total Protein 7.2 g/dL (6.4-8.9)
[2022-08-30] MEDS: Budesonide/Formoterol 160/4.5 1 PUFF INH IH SCH (07:54)
[2022-08-30] MEDS: Tiotropium 10 INH DOSE IH SCH (07:54)
[2022-08-30 07:58] VITALS: RESP 18
[2022-08-30 08:58] VITALS: O2SAT 95
[2022-08-30] MEDS: Insulin DETEMIR 100 UNIT/ML X5UNITS SUBQ SCH (09:03)
[2022-08-30] MEDS: Insulin LISPRO 300 UNITS/3 ML VIAL SUBQ SCH ×4 (09:03→12:10)
[2022-08-30] MEDS: Aspirin Enteric Coated 81 MG Tablet PO SCH (09:08)
[2022-08-30] MEDS: Multivit/Ca/Min/Fe/FA 1 TAB TABLET PO SCH (09:08)
[2022-08-30] MEDS: Gabapentin 100 MG CAPSULE PO SCH ×2 (09:08→12:30)
[2022-08-30] MEDS: Magnesium Oxide 400 MG TABLET PO SCH (09:09)
[2022-08-30] MEDS: Furosemide 20 MG TABLET PO SCH (09:09)
[2022-08-30] MEDS: Isosorbide MONOnitrate (24 HR) 60 MG TAB.ER.24H PO SCH (09:09)
[2022-08-30] MEDS: Lactulose Oral Soln 20 GM/30 ML UDC PO SCH ×2 (09:10→12:32)
[2022-08-30] MEDS: allopurinoL 100 MG TABLET PO SCH (09:10)
[2022-08-30 10:47] VITALS: BP 115/62; PULSE 100
== END 2022-08-30 13:10 | disposition home health service (06) | DRG 432 ==
LOC: INPPIK 15:03
PROVIDERS: ADMIT Internal Medicine; ATTEND Internal Medicine